=== PATIENT | male | born 2000 | race Two or more races ===

== ENCOUNTER 2024-04-23 12:40 | Emergency (ER) | payer BC ==
[~2024-04-23] VITALS: Ht 180.3 cm; Wt 77.1 kg
[2024-04-23 13:47] VITALS: BP 128/67; TEMP 99.2
[2024-04-23] MEDS ORDERED: IBUP-1490 PO (14:16)
[2024-04-23] MEDS ORDERED: ONDA4TAB11 PO (14:16)
[2024-04-23] MEDS ORDERED: ACET-2605 PO (14:16)
[2024-04-23] MEDS ORDERED: BENZ-13 PO (14:16)
[2024-04-23 14:25] VITALS: O2SAT 98
== END 2024-04-23 14:25 | disposition home or self-care (01) ==
LOC: ER 12:48
DX: J02.9 Acute pharyngitis, unspecified (principal); R00.0 Tachycardia, unspecified; R11.10 Vomiting, unspecified; R05.9 Cough, unspecified; R50.9 Fever, unspecified; Z20.822 Contact with and (suspected) exposure to COVID-19